=== PATIENT | male | born 1975 | race Caucasian/White ===

== ENCOUNTER 2020-02-26 14:32 | Emergency (ER) | payer OTHER ==
[~2020-02-26] VITALS: Ht 190.5 cm; Wt 86.2 kg
[2020-02-26 15:30] LABS: HEMATOCRIT 42.7 % (42.0-52.0); HEMOGLOBIN 14.9 gm/dL (14.0-18.0); MCH 32.2 pg (26.0-34.0); MCHC 34.8 g/dL (28.0-37.0); MCV 92.7 fL (80.0-100.0); MPV 6.7 fl. (7.2-11.1); RBC 4.61 mil/uL (4.50-6.00); RDW-CV 13.7 % (10.5-14.5); WBC 7.8 thou/uL (4.0-11.0)
[2020-02-26 15:46] LABS: CALCIUM 8.8 mg/dL (8.5-10.1); CREATININE 0.8 mg/dL (0.6-1.3)
[2020-02-26 15:51] LABS: URINE BILIRUBIN NEGATIVE (Negative); URINE BLOOD NEGATIVE (Negative); URINE CLARITY CLEAR; URINE COLOR YELLOW; URINE GLUCOSE-RANDOM NEGATIVE (Negative); URINE KETONES NEGATIVE (Negative); URINE LEUKOCYTES NEGATIVE (Negative); URINE NITRITE NEGATIVE (Negative); URINE PROTEIN NEGATIVE (Negative); URINE SPECIFIC GRAVITY 1.025 (1.005-1.030); URINE UROBILINOGEN 0.2 E.U./dl (0.2-1.0)
[2020-02-26 15:52] LABS: ALBUMIN 3.9 g/dL (3.4-5.0); TOTAL BILIRUBIN 0.2 mg/dL (<0.1-1.0); TOTAL PROTEIN 6.6 g/dL (6.4-8.2)
[2020-02-26 15:57] LABS: ALCOHOL < 10 mg/dL (<10); SALICYLATE 4.1 mg/dL (2.8-20.0)
[2020-02-26 15:58] LABS: ACETAMINOPHEN < 2 ug/mL (10-30)
[2020-02-26 16:00] LABS: AMP/METHAMP Negative (Negative); BARBITURATES Negative (Negative); BENZODIAZEPINES Negative (Negative); COCAINE Negative (Negative); METHADONE Negative (Negative); OPIATES Negative (Negative); PCP Negative (Negative); THC POSITIVE (Negative)
[2020-02-28 22:35] VITALS: BP 132/78
== END 2020-02-28 22:36 | disposition still patient (30) ==
LOC: M.ERS 14:32
PROVIDERS: Personal Emergency Response Attendant
DX: F23 Brief psychotic disorder (principal)